=== PATIENT | female | born 1950 | race American Indian/Alaskan Native ===

== ENCOUNTER 2017-03-23 01:24 | Inpatient (IN) | payer MEDICARE, OTHER ==
[2017-03-23] MEDS ORDERED: ASPIRIN PO ONE (02:59)
--- NOTE | 2017-03-23 03:05 | Emergency Department Report ---
ED Chest Pain HPI - General Chief Complaint: Chest Pain Stated Complaint: CP Time Seen by Provider: 03/23/17 02:57 Source: EMS, old records reviewed Mode of arrival: Stretcher Limitations: No Limitations - History of Present Illness Initial Comments: 66 yo female who comes in today due to chest pain times two days. She states that she was watching tv at the [facility] where she resides and started to having chest pain. The chest pain was brought on by some of the residents getting into verbal and physical altercations. She describes the pain as left- sided with radiation to her right chest, aching, pressure-like, 8/10, with no radiation. Extensive past medical history. Complaint: chest pain -: days(s) (two ) Onset: during rest Pain Location: left chest Pain Radiation: other (right chest ) Severity scale (0 -10): 8 Quality: heaviness, pressure Consistency: constant Improves With: other (hasn't taken anything) Worsens With: exertion, other (stress) re: other (none) Treatments Prior to Arrival: none Aspirin use within the Past 7 Days: (0) No - Related Data On Oral Contraceptives: No Allergies Allergy/AdvReac Type Severity Reaction Status Date / Time benzonatate Allergy Anaphylaxis Verified 03/23/17 02:34 [From Amara Godinez] latex Allergy Unknown Verified 03/23/17 02:34 morphine Allergy Unknown Verified 03/23/17 02:32 Penicillins Allergy Anaphylaxis Verified 03/23/17 02:32 Sulfa (Sulfonamide Allergy Unknown Verified 03/23/17 02:34 Antibiotics) tetracycline Allergy Unknown Verified 03/23/17 02:34 Heart Score - HEART Score History: Slightly suspicious EKG: Normal Age: > 65 Risk factors: > 3 risk factors or hx of atherosclerotic disease Troponin: < normal limit HEART Score: 4 ED Review of Systems ROS: Stated complaint: CP Other details as noted in HPI Constitutional: denies: chills, fever Eyes: denies: eye pain, eye discharge, vision change ENT: denies: ear pain, throat pain Respiratory: denies: cough, shortness of breath, wheezing Cardiovascular: as per HPI, chest pain Endocrine: no symptoms reported Gastrointestinal: denies: abdominal pain, nausea, diarrhea Genitourinary: denies: urgency, dysuria, discharge Musculoskeletal: denies: back pain, joint swelling, arthralgia Skin: denies: rash, lesions Neurological: denies: headache, weakness, paresthesias Psychiatric: denies: anxiety, depression Hematological/Lymphatic: denies: easy bleeding, easy bruising ED Past Medical Hx - Past Medical History Previous Medical History?: Yes Hx Hypertension: Yes Hx Congestive Heart Failure: Yes Hx GERD: Yes Hx Renal Disease: Yes (ckd3) Hx Arthritis: Yes Hx Psychiatric Treatment: Yes - Surgical History Past Surgical History?: Yes Hx Pacemaker: Yes Hx Internal Defibrillator: Yes (2013) Hx Cholecystectomy: Yes Additional Surgical History: Cataract removal, Tubal Ligation ED Physical Exam - General Limitations: No Limitations General appearance: alert, in no apparent distress - Head Head exam: Present: atraumatic, normocephalic - Eye Eye exam: Present: normal appearance - ENT ENT exam: Present: mucous membranes moist - Neck Neck exam: Present: normal inspection - Respiratory Respiratory exam: Present: normal lung sounds bilaterally - Cardiovascular Cardiovascular Exam: Present: regular rate, normal rhythm. Absent: systolic murmur, diastolic murmur, rubs, gallop - GI/Abdominal GI/Abdominal exam: Present: soft, normal bowel sounds - Extremities Exam Extremities exam: Present: normal inspection - Back Exam Back exam: Present: normal inspection - Neurological Exam Neurological exam: Present: alert, oriented X3 - Psychiatric Psychiatric exam: Present: normal affect, normal mood - Skin Skin exam: Present: warm, dry, intact, normal color. Absent: rash ED Course Vital Signs 03/22/17 03/22/17 03/23/17 22:57 23:00 01:58 Temperature Pulse Rate Respiratory Rate Blood Pressure 149/114 143/113 O2 Sat by Pulse 99 Oximetry 03/23/17 03/23/17 03/23/17 02:00 02:05 02:16 Temperature 98.2 F Pulse Rate 66 67 Respiratory 22 16 Rate Blood Pressure 143/74 113/71 131/71 O2 Sat by Pulse 97 99 99 Oximetry 03/23/17 03/23/17 02:39 03:40 Temperature Pulse Rate 65 78 Respiratory Rate Blood Pressure 133/63 O2 Sat by Pulse Oximetry - Reevaluation(s) Reevaluation #1: 03/23/17 04:23 Chest pain improved with nitroglycerin times one. Plan to admit to hospitalist for chest pain rule out. JACKLYN score - Jacklyn Score Age > 65: (1) Yes Aspirin use within the Past 7 Days: (1) Yes 3 or more CAD Risk Factors: (0) No 2 or more Angina events in past 24 hrs: (0) No Known CAD with more than 50% Stenosis: (0) No Elevated Cardiac Markers: (0) No ST Deviation Greater than 0.5mm: (0) No JACKLYN Score: 2 ED Medical Decision Making - Lab Data Result diagrams: 03/23/17 02:48 03/23/17 02:48 - EKG Data -: EKG Interpreted by Me EKG shows normal: sinus rhythm Rate: normal - EKG Data When compared to previous EKG there are: previous EKG unavailable Interpretation: no acute changes, normal EKG - Radiology Data Radiology results: report reviewed No acute process. - Medical Decision Making Atypical chest pain Extensive cardiac history Resides at a [facility] facility Chest pain resolved with nitro - Differential Diagnosis atypical chest pain Critical care attestation.: If time is entered above; I have spent that time in minutes in the direct care of this critically ill patient, excluding procedure time. ED Disposition Clinical Impression: Chest pain, atypical Disposition: DC-09 OP ADMIT IP TO THIS HOSP Is pt being admited?: Yes Does the pt Need Aspirin: Yes Condition: Stable Instructions: Chest Pain (ED) Referrals: ARAMIS WOODS [Other] - 3-5 Days Time of Disposition: 04:28
[2017-03-23] MEDS ORDERED: NITROSTAT SL ONE (03:12)
[2017-03-23 03:16] LABS: Basophils % (Auto) 0.4 % (0.0-1.8); Eosinophils % (Auto) 1.7 % (0.0-4.3); Hematocrit 37.9 % (30.3-42.9); Mean Corpuscular HGB Conc 34 % (30-34); Mean Corpuscular Hemoglobin 33 pg (28-32); Mean Corpuscular Volume 95 fl (79-97); Platelet Count 171 K/mm3 (140-440); Red Blood Count 3.97 M/mm3 (3.65-5.03); Red Cell Distribution Width 12.9 % (13.2-15.2); White Blood Count 5.6 K/mm3 (4.5-11.0)
--- NOTE | 2017-03-23 03:21 | XRay Report ---
FINAL REPORT EXAM: XR CHEST 1V AP HISTORY: chest pain TECHNIQUE: A portable upright view of the chest was submitted. FINDINGS: The heart size and mediastinum appear normal. The lungs are clear. Pleural fluid is not seen. There is a pacemaker overlying the left chest wall with the lead in the right ventricle. The bones and soft tissues do not show any acute changes. IMPRESSION: No active chest disease.
[2017-03-23 03:26] LABS: Alanine Aminotransferase 12 units/L (7-56); Albumin/Globulin Ratio 1.3 %; Alkaline Phosphatase 98 units/L (35-129); Anion Gap 14 mmol/L; BUN/Creatinine Ratio 21; Blood Urea Nitrogen 19 mg/dL (7-17); Calcium 8.9 mg/dL (8.4-10.2); Carbon Dioxide 29 mmol/L (22-30); Chloride 98.2 mmol/L (98-107); Glucose 105 mg/dL (65-100); Potassium 4.1 mmol/L (3.6-5.0); Sodium 137 mmol/L (137-145); Total Protein 7.1 g/dL (6.3-8.2)
[2017-03-23 04:01] LABS: Creatine Kinase MB 1.2 ng/mL (0.0-4.0)
[2017-03-23] MEDS ORDERED: ZOFRAN IV PRN (04:58)
[2017-03-23] MEDS ORDERED: DULCOLAX PR PRN (04:58)
[2017-03-23] MEDS ORDERED: MILK OF MAGNESIA PO PRN (04:58)
[2017-03-23] MEDS ORDERED: TYLENOL PO PRN (04:58)
--- NOTE | 2017-03-23 05:00 | History and Physical Report ---
History of Present Illness Date of examination: 03/23/17 History of present illness: 66-year-old woman with a history of CHF, mitral valve prolapse, chronic kidney disease, schizoaffective affective disorder, bipolar comes to the emergency room complaining of chest pain. Patient is a voluntary admission at [facility]. 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 Complains of shortness of breath, no nausea vomiting, diaphoresis or palpitation. She had a stress test 1 year ago which was negative Review Of Systems: Constitutional: no weight loss Ears, eyes, nose, mouth and throat: no nasal congestion, no nasal discharge, no sinus pressure, blurry vision, diplopia Neck: No neck pain or rigidity. Cardiovascular: orthopnea, palpitations Respiratory: No cough Gastrointestinal: abdominal pain, hematochezia Genitourinary : no dysuria, frequency , hematuria Musculoskeletal: no muscle ache Integumentary: no rash, no pruritis Neurological: no parathesias, focal weakness Endocrine: no cold or heat intolerance, no polyuria or polydipsia Hematologic/Lymphatic: no easy bruising, no easy bleeding, no gland swelling Allergic/Immunologic: no urticaria, no angioedema. PAST MEDICAL HISTORY:CHF, mitral valve prolapse, chronic kidney disease, schizoaffective affective disorder, bipolar PAST SURGICAL HISTORY: AICD, cholecystectomy, tubal ligation, lysis of the dictation FAMILY HISTORY: Hypertension SOCIAL HISTORY: Denies alcohol, tobacco, drugs Medications and Allergies Allergies Allergy/AdvReac Type Severity Reaction Status Date / Time benzonatate Allergy Anaphylaxis Verified 03/23/17 02:34 [From Amara Godinez] latex Allergy Unknown Verified 03/23/17 02:34 morphine Allergy Unknown Verified 03/23/17 02:32 Penicillins Allergy Anaphylaxis Verified 03/23/17 02:32 Sulfa (Sulfonamide Allergy Unknown Verified 03/23/17 02:34 Antibiotics) tetracycline Allergy Unknown Verified 03/23/17 02:34 Exam - Physical Exam Narrative exam: Gen. appearance: Patient lying in bed in no acute distress HEENT: Normocephalic/atraumatic, pupils equal round reactive to light, extra alkaline movement intact, no scleral icterus, no JVD or thyromegaly or nodule, neck is supple, mucous membrane moist, no erythema or exudate Heart: S1-S2, regular rate and rhythm Lungs: Clear to auscultation bilateral breathing comfortable Abdomen: Positive bowel sounds, nontender, nondistended, no organomegaly Extremities: No edema, cyanosis, clubbing Neuro:: Oriented 3 , cranial nerves II-12 intact, speech, motor intact Skin: No rash, nodules, warm dry - Constitutional Vitals: Temp Pulse Resp BP Pulse Ox 98.2 F 78 16 133/63 99 03/23/17 02:05 03/23/17 03:40 03/23/17 02:16 03/23/17 03:40 03/23/17 02:16 Results - Labs CBC & Chem 7: 03/23/17 02:48 03/23/17 02:48 Labs: Abnormal lab results 03/23/17 03/23/17 03/23/17 Range/Units 02:48 02:48 02:58 MCH 33 H (28-32) pg RDW 12.9 L (13.2-15.2) % Lymph % (Auto) 51.0 H (13.4-35.0) % [place] % (Auto) 7.5 H (0.0-7.3) % Seg Neutrophils % 39.4 L (40.0-70.0) % BUN 19 H (7-17) mg/dL Glucose 105 H (65-100) mg/dL Total Creatine Kinase 215 H (30-135) units/L - Imaging and Cardiology EKG: image reviewed Chest x-ray: image reviewed Assessment and Plan Assessment Atypical chest pain CHF, stable Chronic kidney disease Bipolar Schizoaffective disorder Plan Admit to medicine Check cardiac enzymes, consult cardiology Condition appropriate outpatient medications Dvt prophylaxis
[2017-03-23 09:32] LABS: Creatine Kinase MB 1.1 ng/mL (0.0-4.0)
[2017-03-23 09:34] LABS: Creatine Kinase 192 units/L (30-135)
[2017-03-23] MEDS ORDERED: LOVENOX SUB-Q SCH (10:00)
--- NOTE | 2017-03-23 11:28 | Consultation ---
History of Present Illness Consult date: 03/23/17 Medications and Allergies Allergies Allergy/AdvReac Type Severity Reaction Status Date / Time benzonatate Allergy Anaphylaxis Verified 03/23/17 02:34 [From Amara Godinez] latex Allergy Unknown Verified 03/23/17 02:34 morphine Allergy Unknown Verified 03/23/17 02:32 Penicillins Allergy Anaphylaxis Verified 03/23/17 02:32 Sulfa (Sulfonamide Allergy Unknown Verified 03/23/17 02:34 Antibiotics) tetracycline Allergy Unknown Verified 03/23/17 02:34 Active Meds: Active Medications Acetaminophen (Tylenol) 650 mg PO Q4H PRN PRN Reason: Pain MILD(1-3)/Fever >100.5/ORTIZ Aspirin (Baby Aspirin) 81 mg PO QDAY MARY Bisacodyl (Dulcolax) 10 mg [place] QDAY PRN PRN Reason: Constipation unrelieved by MOM Carvedilol (Coreg) 25 mg PO BID MARY Enoxaparin Sodium (Lovenox) 40 mg SUB-Q QDAY@1000 MARY Losartan Potassium (Cozaar) 50 mg PO QDAY MARY Magnesium Hydroxide (Milk Of Magnesia) 30 ml PO Q4H PRN PRN Reason: Constipation Ondansetron HCl (Zofran) 4 mg IV Q8H PRN PRN Reason: N/V unrelieved by Reglan Physical Examination Vital Signs BP 149/114 03/22/17 22:57 Results 03/23/17 02:48 03/23/17 02:48 Cardiac Enzymes 03/23/17 03/23/17 03/23/17 Range/Units 02:48 02:58 08:56 AST 16 (5-40) units/L CK-MB (CK-2) 1.2 1.1 (0.0-4.0) ng/mL CBC 03/23/17 Range/Units 02:48 WBC 5.6 (4.5-11.0) K/mm3 RBC 3.97 (3.65-5.03) M/mm3 Hgb 13.0 (10.1-14.3) gm/dl Hct 37.9 (30.3-42.9) % Plt Count 171 (140-440) K/mm3 Lymph # 2.9 (1.2-5.4) K/mm3 [place] # 0.4 (0.0-0.8) K/mm3 Eos # 0.1 (0.0-0.4) K/mm3 Baso # 0.0 (0.0-0.1) K/mm3 Comprehensive Metabolic Panel 03/23/17 Range/Units 02:48 Sodium 137 (137-145) mmol/L Potassium 4.1 (3.6-5.0) mmol/L Chloride 98.2 (98-107) mmol/L Carbon Dioxide 29 (22-30) mmol/L BUN 19 H (7-17) mg/dL Creatinine 0.9 (0.7-1.2) mg/dL Glucose 105 H (65-100) mg/dL Calcium 8.9 (8.4-10.2) mg/dL AST 16 (5-40) units/L ALT 12 (7-56) units/L Alkaline Phosphatase 98 (35-129) units/L Total Protein 7.1 (6.3-8.2) g/dL Albumin 4.0 (3.9-5) g/dL Assessment and Plan Detailed Cardiology consult dictated.
[2017-03-23] MEDS: LOVENOX SUB-Q SCH (12:46)
[2017-03-23] MEDS: COREG PO SCH ×2 (12:47→22:25)
[2017-03-23 13:44] LABS: Creatine Kinase 174 units/L (30-135)
--- NOTE | 2017-03-23 14:48 | Event Note ---
Date: 03/23/17 Patient was seen in the prior to this morning, patient still complaining chest pain, cardiology consulted. Continue management per H&P.
[2017-03-23] MEDS: COZAAR PO SCH (18:36)
[2017-03-23] MEDS: BABY ASPIRIN PO SCH (19:40)
[2017-03-23] MEDS ORDERED: XANAX PO ONE (23:19)
--- NOTE | 2017-03-24 04:05 | Consultation ---
REFERRING PHYSICIAN: Domitila Peraza MD, hospitalist. TIME SEEN: 11:10 a.m. SEEN BY: Tobi Rowe MD. CHIEF COMPLAINT: Chest pain. HISTORY OF PRESENT ILLNESS: A 66-year-old mildly obese, pleasant -[place] woman with a history of multiple medical problems -- hypertension, chronic congestive heart failure, known to have left ventricular systolic dysfunction, GERD, history of CKD in the past, mitral valve prolapse, known to have nonischemic dilated cardiomyopathy, history of AICD with pacemaker placement during July 2012, was admitted with atypical chest pains. Chest pains like pinching, lasts for a few minutes, intermittent, not always related to exertion. It is not related to breathing. Serial cardiac enzymes are negative and myocardial infarction has been ruled out. No history of diabetes mellitus. There is a remote history of hyperlipidemia. The patient also gives history of shortness of breath on moderate exertion (NYHA class 2 symptoms) and also she gives history of orthopnea. History of dizziness, but no syncope. No history of palpitations. The patient lives in a [facility] and the chest pain was precipitated by verbal and physical altercations. PAST MEDICAL HISTORY: History of multiple medical problems as described above, history of chronic back pain, history of bipolar disorder and chronic anxiety. She has had multiple cardiac catheterizations and as per her the recent cardiac catheterization was more than 5 years ago and all those procedures revealed normal coronary arteries indicating nonischemic cardiomyopathy. The patient also has a history of bipolar disorder. The last time her AICD was checked was 3-4 months ago and the function was found to be satisfactory. PAST SURGICAL HISTORY: She has also had tubal ligation, eye surgery and cholecystectomy in the past. SOCIAL HISTORY: Not a smoker, not an alcoholic. No history of drug abuse. FAMILY HISTORY: History of congestive heart failure, but no definite family history of premature coronary artery disease. ALLERGIES: SHE IS ALLERGIC TO MULTIPLE MEDICATIONS, BENZONATATE, MORPHINE, PENICILLIN. SHE IS ALSO ALLERGIC TO LATEX. MEDICATIONS: She was taking Coreg 25 mg p.o. b.i.d., losartan 50 mg p.o. daily and aspirin 81 mg p.o. daily at home. At this time, she is on Lovenox 40 mg subcutaneous daily and Zofran IV p.r.n. REVIEW OF SYSTEMS: CARDIOVASCULAR: As described in the history. PULMONARY: As described in the history. RENAL: As described in the history. GASTROINTESTINAL: As described in the history. HEENT: As described in the history. GENITOURINARY SYSTEM: As described in the history. Review of rest of the 10 systems is negative. PHYSICAL EXAMINATION: GENERAL: A 66-year-old mildly obese, pleasant, -[place] woman. VITAL SIGNS: She is afebrile. Pulse 64 per minute and regular, blood pressure 133/72 mmHg, respirations 18 per minute. NEUROLOGIC: She is alert and oriented x 3. HEENT: Negative. NECK: Supple, no JVD, no bruit, no thyromegaly. CHEST WALL: Healed operative scar over the left upper chest. AICD in situ. HEART: Point of maximum impulse down and out and heaving in nature, no palpable thrills. Auscultation of the heart reveals S1, S2 heard with a loud S2. S4 is heard. Grade 2/6 short harsh ejection systolic murmur is heard over the precardium. No rub. EXTREMITIES: Peripheral pulses felt. No edema. LUNGS: Bilateral air entry good and equal. No bronchial breathing, no wheezing. ABDOMEN: Soft, benign. No organomegaly. SKIN: Negative. BONE AND JOINTS: Negative. LABORATORY DATA: Potassium 4.1, BUN and creatinine 19 and 0.9, sodium 137, chloride 98, CO2 of 29. CBC with diff, platelet count within normal limits. Cardiac enzymes as described in the history. Chest x-ray one-view AP view, AICD in situ over the left upper chest, clear lung benitez. Liver function test within normal limits. EKG, normal sinus rhythm, within normal limits. IMPRESSION: 1. Atypical chest pains, myocardial infarction ruled out. 2. History of nonischemic dilated cardiomyopathy. 3. Chronic systolic congestive heart failure. 4. Dyspnea on exertion. 5. History of hypertension and remote history of hyperlipidemia. 6. History of automatic implantable cardioverter defibrillator with PPM placement during July 2012. 7. Multiple other medical problems -- gastroesophageal reflux disease, chronic kidney disease, and history of mitral valve prolapse. 8. History of chronic anxiety, bipolar disorder, chronic back pain. RECOMMENDATIONS: 1. We will place her back on Coreg, losartan, and aspirin. 2. Salt and fluid restriction is stressed. 3. Would order an echocardiogram to assess left ventricular function. 4. Would also ask for fasting lipid panel and it will be followed up. The patient is followed up by Dr. Aguila at [facility] and we will obtain copies of old medical records from there. Thank you again, we will follow. Yours Sincerely, JOB# [id number] HERI/NTS
[2017-03-24 05:46] LABS: Basophils % (Auto) 0.5 % (0.0-1.8); Eosinophils % (Auto) 1.4 % (0.0-4.3); Hematocrit 36.8 % (30.3-42.9); Hemoglobin 12.4 gm/dl (10.1-14.3); Mean Corpuscular HGB Conc 34 % (30-34); Mean Corpuscular Hemoglobin 32 pg (28-32); Mean Corpuscular Volume 94 fl (79-97); Platelet Count 182 K/mm3 (140-440); Red Blood Count 3.93 M/mm3 (3.65-5.03); Red Cell Distribution Width 12.6 % (13.2-15.2); White Blood Count 5.7 K/mm3 (4.5-11.0)
[2017-03-24 06:05] LABS: Anion Gap 18 mmol/L; BUN/Creatinine Ratio 17; Blood Urea Nitrogen 15 mg/dL (7-17); Calcium 8.7 mg/dL (8.4-10.2); Carbon Dioxide 27 mmol/L (22-30); Chloride 99.9 mmol/L (98-107); Glucose 106 mg/dL (65-100); Potassium 3.8 mmol/L (3.6-5.0); Sodium 141 mmol/L (137-145)
[2017-03-24] MEDS: LOVENOX SUB-Q SCH (09:12)
[2017-03-24] MEDS: COZAAR PO SCH (09:12)
[2017-03-24] MEDS: BABY ASPIRIN PO SCH (09:13)
[2017-03-24] MEDS: COREG PO SCH (09:13)
[2017-03-24 09:20] VITALS: BP 145/77
--- NOTE | 2017-03-24 10:20 | Progress Note ---
Assessment and Plan Assessment and plan: 66-year-old woman with a history of CHF, mitral valve prolapse, chronic kidney disease, schizoaffective affective disorder, bipolar comes to the emergency room complaining of chest pain. Patient is a voluntary admission at [facility]. 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 Complains of shortness of breath, no nausea vomiting, diaphoresis or palpitation. She had a stress test 1 year ago which was negative Atypical Chest pain Non Ischemic Dialated Cardiomyopathy- S/P AICD. EF 30-35% Chronic Systolic congestive heart failure Acute Respiratory failure with exertional dyspnea Schizoaffective disorder Bipolar disorder Hyperlipidemia GERD CKD Mitral valve prolapse Chronic Back pain Chronic Anxiety Disorder. Hospitalist Physical - Constitutional Vitals: Temp Pulse Resp BP Pulse Ox 98.3 F 81 22 145/77 97 03/24/17 09:18 03/24/17 09:18 03/24/17 09:18 03/24/17 09:18 03/24/17 09:18 Results - Labs CBC & Chem 7: 03/24/17 04:00 03/24/17 04:00 Labs: Laboratory Last Values WBC 5.7 K/mm3 (4.5-11.0) 03/24/17 04:00 RBC 3.93 M/mm3 (3.65-5.03) 03/24/17 04:00 Hgb 12.4 gm/dl (10.1-14.3) 03/24/17 04:00 Hct 36.8 % (30.3-42.9) 03/24/17 04:00 MCV 94 fl (79-97) 03/24/17 04:00 MCH 32 pg (28-32) 03/24/17 04:00 MCHC 34 % (30-34) 03/24/17 04:00 RDW 12.6 % (13.2-15.2) L 03/24/17 04:00 Plt Count 182 K/mm3 (140-440) 03/24/17 04:00 Lymph % (Auto) 45.3 % (13.4-35.0) H 03/24/17 04:00 [place] % (Auto) 8.1 % (0.0-7.3) H 03/24/17 04:00 Eos % (Auto) 1.4 % (0.0-4.3) 03/24/17 04:00 Baso % (Auto) 0.5 % (0.0-1.8) 03/24/17 04:00 Lymph # 2.6 K/mm3 (1.2-5.4) 03/24/17 04:00 [place] # 0.5 K/mm3 (0.0-0.8) 03/24/17 04:00 Eos # 0.1 K/mm3 (0.0-0.4) 03/24/17 04:00 Baso # 0.0 K/mm3 (0.0-0.1) 03/24/17 04:00 Seg Neutrophils % 44.7 % (40.0-70.0) 03/24/17 04:00 Seg Neutrophils # 2.5 K/mm3 (1.8-7.7) 03/24/17 04:00 Sodium 141 mmol/L (137-145) 03/24/17 04:00 Potassium 3.8 mmol/L (3.6-5.0) 03/24/17 04:00 Chloride 99.9 mmol/L (98-107) 03/24/17 04:00 Carbon Dioxide 27 mmol/L (22-30) 03/24/17 04:00 Anion Gap 18 mmol/L 03/24/17 04:00 BUN 15 mg/dL (7-17) 03/24/17 04:00 Creatinine 0.9 mg/dL (0.7-1.2) 03/24/17 04:00 Estimated GFR > 60 ml/min 03/24/17 04:00 BUN/Creatinine Ratio 17 % 03/24/17 04:00 Glucose 106 mg/dL (65-100) H 03/24/17 04:00 Calcium 8.7 mg/dL (8.4-10.2) 03/24/17 04:00 Total Bilirubin 0.30 mg/dL (0.1-1.2) 03/23/17 02:48 AST 16 units/L (5-40) 03/23/17 02:48 ALT 12 units/L (7-56) 03/23/17 02:48 Alkaline Phosphatase 98 units/L (35-129) 03/23/17 02:48 Total Creatine Kinase 174 units/L (30-135) H 03/23/17 13:01 CK-MB (CK-2) 1.0 ng/mL (0.0-4.0) 03/23/17 13:01 CK-MB (CK-2) Rel Index 0.5 (0-4) 03/23/17 13:01 Troponin T < 0.010 ng/mL (0.00-0.029) 03/23/17 13:01 Total Protein 7.1 g/dL (6.3-8.2) 03/23/17 02:48 Albumin 4.0 g/dL (3.9-5) 03/23/17 02:48 Albumin/Globulin Ratio 1.3 % 03/23/17 02:48 Triglycerides 167 mg/dL (2-149) H 03/24/17 06:00 Cholesterol 199 mg/dL (50-199) 03/24/17 06:00 LDL Cholesterol Direct 113 mg/dL (50-130) 03/24/17 06:00 HDL Cholesterol 53 mg/dL (40-59) 03/24/17 06:00 Cholesterol/HDL Ratio 3.75 % 03/24/17 06:00
--- NOTE | 2017-03-24 10:28 | Progress Note ---
Assessment and Plan Assessment: Atypical chest pain - SD ruled out H/o nonischemic dilated CMP Chronic systolic heart failure HTN HLP AICD/PPM in situ GERD CKD H/o MVP Chronic anxiety / bipolar disorder Chronic back pain Plan: Echo reviewed - EF 35-40%, moderate global hypokinesis of LV, pacemaker wire in RV and RA, mild to mod MR, mild TR, RVSP 26mmHg. Currently stable cardiac status. Pt may discharge home from cardiology standpoint. Recommend follow up in our office with Ciera Montero NP, within 1-2 weeks of hospital discharge ([phone]). The patient has been seen in conjunction with Dr. Cain who agrees with the assessment and plan of care. Subjective Date of service: 03/24/17 Principal diagnosis: atypical chest pain Interval history: pt ambulating around unit without difficulty. VSS. Objective Last Vital Signs Temp 98.3 F 03/24/17 09:18 Pulse 81 03/24/17 09:18 Resp 22 03/24/17 09:18 BP 145/77 03/24/17 09:18 Pulse Ox 97 03/24/17 09:18 - Physical Examination General: No Apparent Distress HEENT: Positive: PERRL, Normocephaly, Mucus Membranes Moist Cardiac: Positive: Reg Rate and Rhythm, S1/S2 - Labs and Meds Cardiac Enzymes 03/23/17 Range/Units 13:01 CK-MB (CK-2) 1.0 (0.0-4.0) ng/mL Lipids 03/24/17 Range/Units 06:00 Triglycerides 167 H (2-149) mg/dL Cholesterol 199 (50-199) mg/dL HDL Cholesterol 53 (40-59) mg/dL Cholesterol/HDL Ratio 3.75 % CBC 03/24/17 Range/Units 04:00 WBC 5.7 (4.5-11.0) K/mm3 RBC 3.93 (3.65-5.03) M/mm3 Hgb 12.4 (10.1-14.3) gm/dl Hct 36.8 (30.3-42.9) % Plt Count 182 (140-440) K/mm3 Lymph # 2.6 (1.2-5.4) K/mm3 [place] # 0.5 (0.0-0.8) K/mm3 Eos # 0.1 (0.0-0.4) K/mm3 Baso # 0.0 (0.0-0.1) K/mm3 Comprehensive Metabolic Panel 03/24/17 Range/Units 04:00 Sodium 141 (137-145) mmol/L Potassium 3.8 (3.6-5.0) mmol/L Chloride 99.9 (98-107) mmol/L Carbon Dioxide 27 (22-30) mmol/L BUN 15 (7-17) mg/dL Creatinine 0.9 (0.7-1.2) mg/dL Glucose 106 H (65-100) mg/dL Calcium 8.7 (8.4-10.2) mg/dL - Imaging and Cardiology EKG: image reviewed Echo: report reviewed (01/2015: EF 40-45%, mild LVH, pacemaker lead in RV. ) - Telemetry EKG Rhythm: Sinus Rhythm
--- NOTE | 2017-03-24 11:00 | Discharge Summary ---
Providers - Providers Date of Admission: 03/23/17 04:58 Attending physician: JUANITO LAROSE MD 03/23/17 04:58 Consult to Physician [CONS] Routine Consulting Provider: LINDA WORLEY Reason For Exam: cp Place consult to:: [facility] Notified:: Y Comment:: ADDED TO LIST 03/23/17 08:35 Consult to Mental Health [CONS] Routine Reason For Exam: Schizoaffective disorder Place consult to:: mental health Notified:: y Time called:: 11:05 03/23/17 13:26 Physical Therapy Evaluation and Treat [CONS] Routine Comment: Reason For Exam: skill needs for SNf 03/23/17 13:27 Occupational Therapy Evaluate and Treat [CONS] Routine Comment: Reason For Exam: eval & treat/skill needs for snf Hospitalization Reason for admission: chest pain Condition: Stable Hospital course: 66-year-old woman with a history of CHF, mitral valve prolapse, chronic kidney disease, schizoaffective affective disorder, bipolar comes to the emergency room complaining of chest pain. Patient is a voluntary admission at [facility]. 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 Complains of shortness of breath, no nausea vomiting, diaphoresis or palpitation. She had a stress test 1 year ago which was negative. Patient presented to the hospital complaining of chest pain and was managed by cardiology. Records were reviewed. Although she has a history of PKD this appears to have resolved. She is very well informed about her medical condition she reports that her primary search engine optimizer [facility] because of all, she has a lot of chest wall pain. This has been managed. She did have an episode of his bowel today and once. She denies any fever abdominal pain nausea vomiting. She is ambulatory with physical therapy and will require a wheeled walker and doing. She is stable to return home and possibly re-level at [place] if she chooses. She denies any suicidal or homicidal ideation at this time. Patient is to follow with primary search engine optimizer Atypical Chest pain likely secondary to costochondritis Non Ischemic Dialated Cardiomyopathy- S/P AICD. EF 30-35% Chronic Systolic congestive heart failure Acute Respiratory failure with exertional dyspnea Schizoaffective disorder Bipolar disorder Hyperlipidemia GERD CKD-by history creatinine 0.9 Mitral valve prolapse Chronic Back pain Chronic Anxiety Disorder. Disposition: DC-01 TO HOME OR SELFCARE Time spent for discharge: 35 mins Core Measure Documentation - Palliative Care Palliative Care/ Comfort Measures: Not Applicable - Core Measures Any of the following diagnoses?: none - VTE Discharge Requirements Deep Vein Thrombosis/Pulmonary Embolism Present on Admission: No Exam - Physical Exam Narrative exam: VITAL SIGNS: Reviewed. GENERAL: The patient appeared well nourished and normally developed. Vital signs as documented. HEAD: No signs of head trauma. EYES: Pupils are equal. Extraocular motions intact. EARS: Hearing grossly intact. MOUTH: Oropharynx is normal. NECK: No adenopathy, no JVD. CHEST: Chest with clear breath sounds bilaterally. No wheezes, rales, or rhonchi. CARDIAC: Regular rate and rhythm. S1 and S2, without murmurs, gallops, or rubs. VASCULAR: No Edema. Peripheral pulses normal and equal in all extremities. ABDOMEN: Soft, without detectable tenderness. No sign of distention. No rebound or guarding, and no masses palpated. Bowel Sounds normal. MUSCULOSKELETAL: Slow gait requiring a walker to ambulate. Reproducible chest wall tenderness. Good range of motion of all major joints. Extremities without clubbing, cyanosis or edema. NEUROLOGIC EXAM: Alert and oriented x 3. No focal sensory or strength deficits. Speech normal. Follows commands. PSYCHIATRIC: Mood normal. SKIN: No rash or lesions. - Constitutional Vitals: Temp Pulse Resp BP Pulse Ox 98.3 F 81 22 145/77 97 03/24/17 09:18 03/24/17 09:18 03/24/17 09:18 03/24/17 09:18 03/24/17 09:18 Plan Activity: advance as tolerated, fall precautions Diet: low fat, low cholesterol, low salt Special Instructions: record daily weights, record daily BP diary Additional Instructions: Follow-up primary search engine optimizer in 1 week Follow up with: ARAMIS WOODS [Other] - 3-5 Days Prescriptions: Aspirin [Aspirin BABY CHEW TAB] 81 mg PO QDAY #30 tab.chew
== END 2017-03-24 15:43 | disposition home or self-care (01) | DRG 205 ==
LOC: ED 01:24 → 4A 04:58
PROVIDERS: ADMIT Internal Medicine; ATTEND Internal Medicine
DX: M94.0 Chondrocostal junction syndrome [Tietze] (principal); J96.00 Acute respiratory failure, unspecified whether with hypoxia or hypercapnia; I50.22 Chronic systolic (congestive) heart failure; I13.0 Hypertensive heart and chronic kidney disease with heart failure and stage 1 through stage 4 chronic kidney disease, or unspecified chronic kidney disease; I42.0 Dilated cardiomyopathy; K21.9 Gastro-esophageal reflux disease without esophagitis; E78.5 Hyperlipidemia, unspecified; F25.9 Schizoaffective disorder, unspecified; N18.3 Chronic kidney disease, stage 3 (moderate); M19.90 Unspecified osteoarthritis, unspecified site; F31.9 Bipolar disorder, unspecified; E66.9 Obesity, unspecified; G89.29 Other chronic pain; M54.9 Dorsalgia, unspecified; F41.9 Anxiety disorder, unspecified; Z88.8 Allergy status to other drugs, medicaments and biological substances; Z88.0 Allergy status to penicillin; Z88.2 Allergy status to sulfonamides; Z91.040 Latex allergy status; Z95.810 Presence of automatic (implantable) cardiac defibrillator; Z90.49 Acquired absence of other specified parts of digestive tract; Z98.51 Tubal ligation status; Z98.49 Cataract extraction status, unspecified eye; Z82.49 Family history of ischemic heart disease and other diseases of the circulatory system; Z68.33 Body mass index [BMI] 33.0-33.9, adult; Z98.61 Coronary angioplasty status; Z88.5 Allergy status to narcotic agent
CPT/HCPCS: 36415; 71010; 80048; 80053; 80061; 82550; 82553; 84484; 85025; 93005; 93010; 93306; G8978-GP; G8979-GP; G8980-GP; G8987-GO; G8988-GO; J1650